=== PATIENT | female | born 1990 | race Caucasian/White ===

== ENCOUNTER 2016-10-04 14:30 | Emergency (ER) | payer OTHER ==
[2016-10-04 14:35] VITALS: BMI 34.4
--- NOTE | 2016-10-04 15:46 | PDOC ---
History of Present Illness - General Chief Complaint: Pain Stated Complaint: PAIN Time Seen by Provider: 10/04/16 15:45 History Source: Patient Exam Limitations: No Limitations - History of Present Illness Initial Comments: CHIEF COMPLAINT: 25 y/o afebrile female with no significant PMH c/o painful area to buttock since yesterday. HISTORY OF PRESENT ILLNESS: The patient states she noticed the painful area yesterday. Her mother was able to "pop" the affected area and express some pus yesterday. The patient states the area is still very painful. She denies f/c, n/v/d, CP, SOB, abd pain, hematuria, dysuria. She has not taken anything for pain. Vital signs on arrival are notable for pulse of 113 with temp of 99.4 REVIEW OF SYSTEMS: GENERAL/CONSTITUTIONAL: No fever/chills. No weakness. No weight change. HEAD, EYES, EARS, NOSE AND THROAT: No change in vision. No ear pain or discharge. No sore throat. CARDIOVASCULAR: No chest pain or shortness of breath. RESPIRATORY: No cough, wheezing, or hemoptysis. GASTROINTESTINAL: No abd pain, nausea, vomiting, diarrhea. GENITOURINARY: No dysuria, frequency, or change in urination. MUSCULOSKELETAL: No joint or muscle swelling or pain. No neck or back pain. SKIN: +painful area on right buttock NEUROLOGIC: No headache, vertigo, loss of consciousness, or loss of sensation. PHYSICAL EXAM: GENERAL: The patient is awake, alert, and fully oriented, in no acute distress. She is overweight, well appearing and ambulatory. HEAD: Normal with no signs of trauma. ENT: Pupils equal, round and reactive to light, extraocular movements intact, sclera anicteric, conjunctiva clear. Neck supple. LUNGS: Clear to auscultation bilaterally. Normal excursion. No respiratory distress or use of accessory muscles. CV: RRR, S1/S2, no MRG. Cap refill < 2 sec. ABDOMEN: Soft, non-distended, non-tender even to deep palpation, no hepatomegaly or splenomegaly, no masses. EXTREMITIES: Normal range of motion, no edema. NEUROLOGICAL: Normal speech, normal gait. CN II-XII grossly intact. PSYCH: Normal mood, normal affect. SKIN: 7cm in diameter area of erythema and warmth that is non-fluctuant with central opening on right superior gluteal fold without involvement of rectum or rectal wall. No streaking. Past History - Past Medical History Allergies/Adverse Reactions: Allergies Allergy/AdvReac Type Severity Reaction Status Date / Time Penicillins Allergy Severe Swelling Verified 10/04/16 14:35 Home Medications: Ambulatory Orders Docusate Sodium [Colace -] 100 mg PO DAILY #7 capsule 05/18/15 Oxycodone HCl [Roxicodone -] 10 mg PO Q4H PRN #60 tablet MDD 60 mg 05/18/15 Cephalexin [Keflex] 500 mg PO BID #20 capsule 10/04/16 Sulfamethoxazole/Trimethoprim [Bactrim Ds -] 1 tab PO BID #20 tablet 10/04/16 Anemia: No Asthma: No Cancer: No Cardiac Disorders: No COPD: No CHF: No Dementia: No Diabetes: No GI Disorders: No Disorders: No HTN: No Hypercholesterolemia: No Liver Disease: No Seizures: No Thyroid Disease: No - Surgical History Cholecystectomy: Yes - Immunization History Immunization Up to Date: Yes - Psycho/Social/Smoking Cessation Hx Anxiety: No Suicidal Ideation: No Smoking History: Never smoked Have you smoked in the past 12 months: Yes Hx Alcohol Use: No Drug/Substance Use Hx: No Substance Use Type: None Hx Substance Use Treatment: No *Physical Exam - Vital Signs Last Vital Signs Temp Pulse Resp BP Pulse Ox 99.4 F 113 H 20 130/71 97 10/04/16 14:31 10/04/16 14:31 10/04/16 14:31 10/04/16 14:31 10/04/16 14:31 Medical Decision Making - Medical Decision Making A/P: 25 y/o female with non fluctuant abscess with a central opening on her right buttock. No purulent discharge can be expressed with palpation. Plan is as follows: 1. hcg 2. PO tylenol hcg - negative Will give PO keflex and Bactrim in the ER. Patient monitored for 30 minutes in the ER after having Keflex and experienced no ADRs from the medication. Can assume she has no cross sensitivity to 1st generation cephalosporins. Will send rx for bactrim and keflex. Instructed patient to take entire 10 days of both. Instructed her to apply hot compresses multiple times per day and take Ibuprofen every 6 hours with food for pain. Suggested she f/u with her doctor within 1 week and return to the ER with any worsening or concerning symptoms. The patient verbalizes understanding of all instructions, has no further questions and is awaiting discharge. *DC/Admit/Observation/Transfer Diagnosis at time of Disposition: Skin abscess Qualifiers: Site of cutaneous abscess: buttock Qualified Code(s): L02.31 - Cutaneous abscess of buttock - Discharge Dispostion Disposition: HOME Condition at time of disposition: Good - Prescriptions Prescriptions: Sulfamethoxazole/Trimethoprim [Bactrim Ds -] 1 tab PO BID #20 tablet Cephalexin [Keflex] 500 mg PO BID #20 capsule - Referrals Referrals: Bean Augustin MD [Primary Care Provider] - - Patient Instructions Printed Discharge Instructions: DI for Skin Abscess Additional Instructions: Discharge Instructions: -2 prescriptions for antibiotics have been sent to your pharmacy -Apply hot compresses to the affected area multiple times per day -Follow up with Dr. Augustin within 1 week -Return to the ER with any worsening or concerning symptoms - Post Discharge Activity Work/School Note: Back to Work
[2016-10-04] MEDS ORDERED: ACETAMINOPHEN 325 MG TABLET (FP) PO ONE (16:12)
[2016-10-04] MEDS ORDERED: SULFAMETHOXAZOLE/TRIMETHOPRIM 800MG/160MG D.S. TABLET PO ONE (16:45)
[2016-10-04] MEDS ORDERED: CEPHALEXIN MONOHYDRATE 500 MG CAPSULE (UD) PO ONE (16:45)
[2016-10-04] MEDS ORDERED: ACETAMINOPHEN 325 MG TABLET (FP) ONE (16:49)
[2016-10-04] MEDS ORDERED: CEPHALEXIN MONOHYDRATE 250 MG CAPSULE (FP) ONE (16:50)
[2016-10-04] MEDS ORDERED: SULFAMETHOXAZOLE/TRIMETHOPRIM 800MG/160MG D.S. TABLET ONE (16:50)
[2016-10-04 17:44] VITALS: BP 116/65; PULSE 77; TEMP 98.9
--- NOTE | 2016-10-04 17:44 | PDOC ---
*Physical Exam - Vital Signs Last Vital Signs Temp Pulse Resp BP Pulse Ox 99.4 F 113 H 20 130/71 97 10/04/16 14:31 10/04/16 14:31 10/04/16 14:31 10/04/16 14:31 10/04/16 14:31 - Physical Exam Comments: 10/04/16 17:44 The patient was examined by [MASOUD Clayton] under my direct supervision. I personally evaluated the patient. I concur with the above findings and the plan of care. ED Treatment Course - ADDITIONAL ORDERS Additional order review: Laboratory Results 10/04/16 16:30 Urine HCG, Qual Negative - Medications Given in the ED: ED Medications Discontinued Medications Generic Name Dose Route Start Last Admin Trade Name Marcus PRN Reason Stop Dose Admin Acetaminophen 650 mg 10/04/16 16:12 10/04/16 16:52 Tylenol - PO 10/04/16 16:13 650 mg ONCE ONE Administration Cephalexin HCl 500 mg 10/04/16 16:45 10/04/16 16:53 Keflex - PO 10/04/16 16:46 500 mg ONCE ONE Administration Trimethoprim/Sulfamethoxazole 1 each 10/04/16 16:45 10/04/16 16:51 Bactrim Ds - PO 10/04/16 16:46 1 each ONCE ONE Administration *DC/Admit/Observation/Transfer Diagnosis at time of Disposition: Skin abscess Qualifiers: Site of cutaneous abscess: buttock Qualified Code(s): L02.31 - Cutaneous abscess of buttock - Discharge Dispostion Condition at time of disposition: Good - Prescriptions Prescriptions: Sulfamethoxazole/Trimethoprim [Bactrim Ds -] 1 tab PO BID #20 tablet Cephalexin [Keflex] 500 mg PO BID #20 capsule - Referrals Referrals: Bean Augustin MD [Primary Care Provider] - - Patient Instructions Printed Discharge Instructions: DI for Skin Abscess Additional Instructions: Discharge Instructions: -2 prescriptions for antibiotics have been sent to your pharmacy -Apply hot compresses to the affected area multiple times per day -Follow up with Dr. Augustin within 1 week -Return to the ER with any worsening or concerning symptoms - Post Discharge Activity Work/School Note: Back to Work
== END 2016-10-04 17:56 | disposition home or self-care (01) ==
LOC: JER 14:30
DX: L02.31 Cutaneous abscess of buttock (principal)
CPT/HCPCS: 84703; 99282-25

== ENCOUNTER 2017-02-17 23:23 | Emergency (ER) | payer OTHER ==
[2017-02-17 23:49] VITALS: BP 122/61; PULSE 81; TEMP 97.8; BMI 33.3
[2017-02-17] MEDS ORDERED: SODIUM CHLORIDE 1,000 ML IV STA (23:58)
[2017-02-18 00:43] LABS: BASOPHIL 0.6 % (0-2.0); EOSINOPHIL 1.1 % (0-4.5); MCHC 33.9 g/dl (32.0-36.0); MEAN CELL VOLUME 91.4 fl (80-96); MEAN PLT VOLUME 10.5 fl (7.5-11.1); NEUTROPHILS 62.6 % (42.8-82.8); PLATELET COUNT 139 K/MM3 (134-434); RDW 13.2 % (11.6-15.6); WHITE BLOOD COUNT 8.3 K/mm3 (4.0-10.0)
[2017-02-18 01:10] LABS: ALBUMIN 3.8 g/dl (3.4-5.0); ALK PHOS 70 U/L (45-117); AMYLASE 49 U/L (25-115); ANION GAP 6 (8-16); BILIRUBIN,TOTAL 0.1 mg/dL (0.2-1.0); CALCIUM 9.2 mg/dL (8.5-10.1); CO2 28 mmol/L (21-32); CREATININE 0.6 mg/dL (0.55-1.02); GLUCOSE,RANDOM 93 mg/dL (74-106); SGOT/AST 19 U/L (15-37); SGPT/ALT 43 U/L (12-78); TOT PROT 7.1 g/dl (6.4-8.2)
[2017-02-18 01:30] LABS: URINE APPEARANCE CLOUDY; URINE BILIRUBIN NEGATIVE (NEGATIVE); URINE BLOOD NEGATIVE (NEGATIVE); URINE COLOR LTYELLOW; URINE GLUCOSE (UA) NEGATIVE (NEGATIVE); URINE KETONE NEGATIVE (NEGATIVE); URINE LEUK ESTERASE NEGATIVE (NEGATIVE); URINE NITRITE NEGATIVE (NEGATIVE); URINE PROTEIN NEGATIVE (NEGATIVE); URINE UROBILINOGEN NEGATIVE mg/dL (0.2-1.0)
--- NOTE | 2017-02-18 01:30 | PDOC ---
History of Present Illness - General Chief Complaint: Rectal Bleed Stated Complaint: PAIN Time Seen by Provider: 02/17/17 23:40 History Source: Patient Exam Limitations: No Limitations - History of Present Illness Travel History: No Initial Comments: 02/18/17 01:23 26yo Female patient w/ PmHx: Cholecystecomy presents to ED c/o rectal bleeding. Patient states she underwent Colonoscopy February 06 due to profound diarrhea/ frequent BM. She reports results were negative. Patient then report having difficulty with her bowel movements and her GI specialist prescribed Cholestyramine 4 gm. Patient states approximately 2 hours ago having bloody BM x 2. LNMP: IUD. She denies any other complaints at this time. GI- Dr. Alfaro ([facility]). Past History - Travel Traveled outside of the country in the last 30 days: No Close contact w/someone who was outside of country & ill: No - Past Medical History Allergies/Adverse Reactions: Allergies Allergy/AdvReac Type Severity Reaction Status Date / Time Penicillins Allergy Severe Swelling Verified 02/17/17 23:48 Home Medications: Ambulatory Orders Cholestyramine (with Sugar) [Cholestyramine Packet] 4 gm PO DAILY 02/17/17 Anemia: No Asthma: No Cancer: No Cardiac Disorders: No COPD: No CHF: No Dementia: No Diabetes: No GI Disorders: No Disorders: No HTN: No Hypercholesterolemia: No Liver Disease: No Seizures: No Thyroid Disease: No Other medical history: Pt denies - Surgical History Cholecystectomy: Yes - Immunization History Immunization Up to Date: Yes - Suicide/Smoking/Psychosocial Hx Smoking History: Never smoked Have you smoked in the past 12 months: No Information on smoking cessation initiated: No Hx Alcohol Use: No Drug/Substance Use Hx: No Substance Use Type: None Hx Substance Use Treatment: No Abd/GI Specific PMHX - Complaint Specific PMHX Colitis: No Diverticulitis: No Gall Bladder Disease: No GERD: No Hepatitis: No Irritable Bowel Synd (IBS): No Pancreatitis: No GI Ulcer Disease: No Review of Systems - Review of Systems Able to Perform ROS?: Yes Is the patient limited Gambian proficient: No Constitutional: No: Fever ABD/GI: Yes: Blood Streaked Bowels, Rectal Bleeding. No: Diarrhea, Nausea, Poor Appetite, Poor Fluid Intake, Vomiting, Abdominal cramping All Other Systems: Reviewed and Negative *Physical Exam - Vital Signs Last Vital Signs Temp Pulse Resp BP Pulse Ox 97.8 F 81 14 122/61 100 02/17/17 23:48 02/17/17 23:48 02/17/17 23:48 02/17/17 23:48 02/18/17 00:53 - Physical Exam Comments: 02/18/17 02:11 Patient in room drinking Gatorade and playing pool on her cell phone. Patient does not appear to be in any pain or acute distress at this time. General Appearance: Yes: Nourished, Appropriately Dressed. No: Apparent Distress, Mild Distress, Moderate Distress, Severe Distress Respiratory/Chest: positive: Lungs Clear, Normal Breath Sounds. negative: Chest Tender, Respiratory Distress, Accessory Muscle Use, Labored Respiration, Rapid RR, Decreased Breath Sounds, Paradoxal Breathing, Rhonchi, Stridor, Wheezing Cardiovascular: positive: Regular Rhythm, Regular Rate Gastrointestinal/Abdominal: positive: Normal Bowel Sounds, Soft. negative: Tender, Distended, Guarding, Rebound, Tenderness Rectal Exam: positive: heme negative stool, normal rectal tone, hemorrhoids ( external) Musculoskeletal: positive: Normal Inspection. negative: CVA Tenderness, Decreased Range of Motion, Vertebral Tenderness Extremity: positive: Normal Capillary Refill, Normal Inspection, Normal Range of Motion, Pelvis Stable. negative: Pedal Edema, Swelling, Calf Tenderness, Erythema, Inflammation Integumentary: positive: Normal Color, Dry, Warm Neurologic: positive: e commerce strategist II-XII NML intact, Fully Oriented, Alert, Normal Mood/ Affect, Normal Response, Motor Strength 5/5 ED Treatment Course - LABORATORY CBC & Chemistry Diagram: 02/18/17 00:30 02/18/17 00:30 - ADDITIONAL ORDERS Additional order review: Laboratory Results 02/18/17 02/18/17 00:45 00:30 Sodium 139 Potassium 4.0 Chloride 105 Carbon Dioxide 28 Anion Gap 6 L BUN 13 D Creatinine 0.6 Creat Clearance w eGFR > 60 Random Glucose 93 Calcium 9.2 Total Bilirubin 0.1 L D AST 19 D ALT 43 D Alkaline Phosphatase 70 D Total Protein 7.1 Albumin 3.8 Total Amylase 49 Lipase 150 Stool Occult Blood Negative 02/18/17 00:30 RBC 4.04 MCV 91.4 MCHC 33.9 RDW 13.2 MPV 10.5 Neutrophils % 62.6 Lymphocytes % 26.8 D Monocytes % 8.9 Eosinophils % 1.1 Basophils % 0.6 - Medications Given in the ED: ED Medications Discontinued Medications Generic Name Dose Route Start Last Admin Trade Name Zevq PRN Reason Stop Dose Admin Sodium Chloride 1,000 mls @ 1,000 mls/hr 02/17/17 23:58 02/18/17 00:52 Normal Saline - IV 02/18/17 00:57 1,000 mls/hr ASDIR STA Administration *DC/Admit/Observation/Transfer Diagnosis at time of Disposition: External hemorrhoid - Discharge Dispostion Disposition: HOME Condition at time of disposition: Stable Admit: No - Referrals - Patient Instructions Printed Discharge Instructions: DI for Hemorrhoids, DI for Rectal Bleeding Additional Instructions: Follow up with your gastoenterologist this week. Call to schedule appointment. Return if any concerns for further evaluation. Print Language: NEPALI - Post Discharge Activity
== END 2017-02-18 04:21 | disposition home or self-care (01) ==
LOC: JER 23:23
PROC: 3E0337Z Introduction of Electrolytic and Water Balance Substance into Peripheral Vein, Percutaneous Approach (ICD-10-PCS; principal; 2017-02-17)
DX: K64.4 Residual hemorrhoidal skin tags (principal)
CPT/HCPCS: 36415; 80053; 81003; 82150; 82272; 83690; 84703; 85025; 86850; 86900; 86901; 96360; 99283-25

== ENCOUNTER 2017-08-15 13:42 | Day surgery (SDC) | payer OTHER ==
[2017-08-14 15:48] VITALS: BMI 36.1
[2017-08-15 14:30] LABS: INR 1.01 (0.82-1.09); PROTHROMBIN TIME (PATIENT) 11.4 SEC (9.7-13.0)
[2017-08-15] MEDS ORDERED: ONDANSETRON 4 MG/2 ML VIAL IVPUSH PRN (15:12)
[2017-08-15] MEDS ORDERED: oxyCODONE HCL 5 MG TABLET PO PRN (15:12)
[2017-08-15] MEDS ORDERED: LACTATED RINGERS SOLUTION 1,000 ML IV SCH (15:15)
[2017-08-15] MEDS ORDERED: MIDAZOLAM HCL 2 MG/2 ML SINGLE DOSE VIAL ONE (15:46)
[2017-08-15] MEDS ORDERED: PROPOFOL 20 ML ONE ×2 (15:46→16:02)
[2017-08-15] MEDS ORDERED: CLINDAMYCIN PHOSPHATE 600 MG/4 ML VIAL ONE (16:09)
[2017-08-15] MEDS ORDERED: CLINDAMYCIN 600 MG PREMIX BAG IVPB ONE (16:09)
--- NOTE | 2017-08-15 16:34 | HP ---
History & Physical Update - History History: No Change - Physical Physical: No Change - Assessment Assessment: No Change - Plan Plan: No Change (Hysteroscopy, removal of IUD)
--- NOTE | 2017-08-15 16:39 | OP ---
Operative Note - Note: Operative Date: 08/15/17 Pre-Operative Diagnosis: Retained, displaced IUD Operation: Hysteroscopy, removal of retained IUD Findings: IUD perforating postrior lower uterine segment with the top of the IUD (arms) buried below the indometrium and the bottom segment (stem) protruding upwards and into the uterine cavity. Post-Operative Diagnosis: Same as Pre-op Surgeon: Robert Castillo Anesthesiologist/NOVELTY BALLOON ASSEMBLER AND PACKER: Ted Stiles Anesthesia: General Specimens Removed: IUD Estimated Blood Loss (mls): 0 Blood Volume Replaced (mls): 0 Fluid Volume Replaced (mls): 500 Operative Report Dictated: Yes
[2017-08-15 18:19] VITALS: TEMP 97.8
[2017-08-15 19:09] VITALS: BP 120/60; PULSE 78
--- NOTE | 2017-08-15 20:34 | OP ---
DATE OF OPERATION: 08/15/2017 PREOPERATIVE DIAGNOSIS: Retained and displaced intrauterine device. POSTOPERATIVE DIAGNOSIS: Retained and displaced intrauterine device. PROCEDURE: Hysteroscopy, removal of retained and displaced intrauterine device. SURGEON: Robert Castillo M.D. ANESTHESIOLOGIST: Ted Stiles D.O. ANESTHESIA: General. COMPLICATIONS: None. ESTIMATED BLOOD LOSS: Zero. INTRAVENOUS FLUIDS: 500 mL. PATHOLOGY: Intrauterine device. FINDINGS: Examination under anesthesia revealed a small, anteverted uterus with no pelvic or adnexal masses. There was an IUD string visible through the cervical os. Hysteroscopy revealed an intrauterine device perforating the posterior lower uterine segment with the top of the intrauterine device/arm buried below the endometrium and the bottom of the intrauterine device (stem) protruding upwards and into the uterine cavity, with the string visible through the cervical os. DESCRIPTION OF PROCEDURE: The patient was met preoperatively. Risks, benefits, and alternatives of surgery were discussed in detail. All questions were answered. The patient was then brought to the OR with the IV running. She was placed on the surgical table in supine position. The general anesthesia was achieved without difficulty. The patient was then placed in a dorsal lithotomy position using adjustable nylon stirrups. She was prepped and draped in the usual sterile fashion. A timeout procedure was conducted as per standard protocol. A weighted speculum was introduced inside the vagina with good visualization of the cervix. The anterior cervical lip was grasped with a single-toothed tenaculum. The cervical os was gently dilated to accommodate a size 13 Alegria dilator. A small diagnostic hysteroscope was then introduced through the cervical canal and into the uterine cavity. The IUD was noted to be imbedded in the posterior lower uterine segment with the top of the IUD completely buried underneath the surface of the uterus. The stem of the IUD was protruding upwards. The hysteroscope was then removed. The cervical os was then gently dilated to accommodate a size 23 Alegria dilator. A tonsil clamp was then advanced into the cervical canal. The IUD was grasped and gently removed without complications. The IUD was removed intact and good hemostasis was noted. The IUD was submitted to pathology for evaluation. Hysteroscopy was then done once again. Good hemostasis was noted. A normal uterine cavity was noted. All the instruments were then removed from the patient. Sponge, lap, and instrument counts were correct. The patient was returned to supine position and transferred to recovery room awake and in stable condition. Marian [id number]
--- NOTE | 2017-08-17 16:00 | PATH ---
Surgical Pathology Report Patient Name: JOSE LUIS PORTER [facility]. Rec. #: [id number] /Age/Gender: 1990 (Age: 26) / F Account: [id number] Location: [facility] SURGICAL Taken: 08/15/2017 Received: 08/16/2017 Reported: 08/17/2017 Physicians: Robert Castillo M.D. Specimen(s) Received IUD Clinical History Pelvic pain, mechanical compression of intrauterine contraceptive Final Diagnosis INTRAUTERINE DEVICE (IUD), REMOVAL: FOREIGN BODY MATERIAL CONSISTENT WITH INTRAUTERINE DEVICE (IUD). MACROSCOPIC DIAGNOSIS. Electronically Signed Alyssa Burroughs M.D. Gross Description Received fresh labeled "IUD" is a T-shaped device with attached thread measuring 3 cm consistent with an IUD. No soft tissue is present. This is for gross examination only. No histologic sections are taken. DENIS/08/16/2017 tenzin/08/16/2017
== END 2017-08-15 19:35 | disposition home or self-care (01) ==
LOC: JASU-SURG 13:42
PROVIDERS: ATTEND Obstetrics & Gynecology
PROC: 0UC98ZZ Extirpation of Matter from Uterus, Via Natural or Artificial Opening Endoscopic (ICD-10-PCS; principal; 2017-08-15 15:00)
DX: T83.89XA Other specified complication of genitourinary prosthetic devices, implants and grafts, initial encounter (principal)
CPT/HCPCS: 36415; 84703; 85610; 85730; 86850; 86900; 86901; 88300-TC; 94760